=== PATIENT | female | born 1985 | race African-American/Black ===

== ENCOUNTER 2018-03-01 10:50 | Emergency (ER) | payer SELFPAY ==
[2018-03-01] MEDS ORDERED: Ondansetron ODT 4 MG TAB ONE ×2 (10:53→14:09)
[2018-03-01 13:00] LABS: Bilirubin Negative (Negative); Blood, Urine Large (Negative); Clarity TURBID (Clear); Glucose, Urine (Dipstick) Negative (Negative); Leukocyte Small (Negative); Nitrite Negative (Negative); Protein, Urine (Dipstick) Trace mg/dL (Neg-Trace); Specific Gravity, Urine 1.026 (1.002-1.036); Urobilinogen 0.2 mg/dL (0.2-1.0)
[2018-03-01 13:02] LABS: #Eosinphils 0.1 thou/uL (0.0-0.7); #Lymphocytes 1.1 thou/uL (1.20-3.40); #Monocytes 0.6 thou/uL (0.11-0.59); #Neutrophils 7.5 thou/uL (1.40-6.50); %Basophils 0.1 % (0.0-1.0); %Eosinophils 0.8 % (0.0-10.0); %Lymphocytes 11.4 % (21.0-51.0); %Monocytes 6.3 % (0.0-10.0); %Neutrophils 81.4 % (42.0-75.0); Hemoglobin 11.3 g/dL (12.0-16.0); Mean Corpuscular HGB CONC 31.9 g/dL (32.0-36.0); Mean Corpuscular Hemoglobin 23.3 pg (27.0-31.0); Mean Corpuscular Volume 73.1 fL (78.0-98.0); Mean Platelet Volume 7.9 fL (7.4-10.4); Platelet Count 351 thou/uL (130-400); RBC Distribution Width 16.4 % (11.5-14.5); Red Blood Cell (RBC) Count 4.86 mill/uL (4.20-5.40); White Blood Cell (WBC) Count 9.2 thou/uL (4.8-10.8)
[2018-03-01 13:02] LABS: Bacteria/HPF 1+ HPF (None Seen); Hyaline Casts/LPF 0-3 HYALINE CAST LPF (0-3 Hyaline); Pathc Cast-AUWi Flag 0.14 (0-2.49); RBC/HPF 0-3 HPF (0-3)
[2018-03-01 13:07] LABS: Renal Epithelial None Seen HPF (0-3); Transitional Epithelial NONE SEEN HPF (0-3)
[2018-03-01 13:21] LABS: ALT (SGPT) 22 U/L (8-55); AST (SGOT) 15 U/L (5-34); Albumin 4.2 g/dL (3.5-5.0); Alkaline Phosphatase 65 U/L (40-150); Anion Gap 10 mmol/L (10-20); BHCG - Serum Negative (NEGATIVE); BUN (Urea Nitrogen) 7 mg/dL (7.0-18.7); Bilirubin, Total 0.3 mg/dL (0.2-1.2); Calc. Creatinine Clearance 0 mL/min (70-130); Calcium 8.7 mg/dL (7.8-10.44); Carbon Dioxide 22 mmol/L (22-29); Chloride 108 mmol/L (98-107); Estimated GFR-MDRD Greater than 90; Globulin 2.7 g/dL (2.4-3.5); Glucose 90 mg/dL (70-105); Lipase 17 U/L (8-78); Potassium 3.5 mmol/L (3.5-5.1); Pregs Control Background? CLEAR/WHITE (CLR/WHITE); Pregs Control Bar Appear? YES (CONTROL BAR); Protein, Total 6.9 g/dL (6.0-8.3); Sodium 136 mmol/L (136-145)
--- NOTE | 2018-03-01 14:04 | ULT ---
ULTRASOUND ABDOMEN LIMITED: (RIGHT UPPER QUADRANT) Date: 03/01/18 Time: 1332 hours HISTORY: 32-year-old female with right upper quadrant abdominal pain. FINDINGS: Gallbladder: There are gallstones. At least two are visualized abutting each other at the gallbladder fundus/body. One of them measures at least 23 mm in size. Gallbladder wall thickness is at the upper limits of normal. No pericholecystic fluid. Positive tenderness over the gallbladder. Common duct: 5 mm. Liver: Normal size and echogenicity. Pancreas: Nonspecific sonographic appearance. Right kidney: No hydronephrosis. IMPRESSION: Positive for cholelithiasis. AIDAN Thomas POS: ISMAEL
== END 2018-03-01 14:15 | disposition home or self-care (01) ==
LOC: ERS 10:50
DX: K80.20 Calculus of gallbladder without cholecystitis without obstruction (principal); N39.0 Urinary tract infection, site not specified; F17.210 Nicotine dependence, cigarettes, uncomplicated
CPT/HCPCS: 36415; 76705; 80053; 81003; 81015; 83690; 84703; 85025; 87086; Q0162

== ENCOUNTER 2018-04-11 05:18 | Observation (INO) | payer SELFPAY ==
[2018-04-11 06:02] LABS: Bilirubin Negative (Negative); Blood, Urine Negative (Negative); Clarity CLEAR (Clear); Glucose, Urine (Dipstick) Negative (Negative); Leukocyte Negative (Negative); Nitrite Negative (Negative); Pregnancy Test - Urine (BHCG) Negative (Negative); Pregu Control Background? CLEAR/WHITE (CLR/WHITE); Pregu Control Bar Appear? YES (CONTROL BAR); Protein, Urine (Dipstick) Negative (Neg-Trace); Specific Gravity 1.017 (1.002-1.036); Specific Gravity, Urine 1.017 (1.002-1.036); Urobilinogen 0.2 mg/dL (0.2-1.0); pH, Urine 6.5 (5.0-9.0)
[2018-04-11] MEDS ORDERED: Fentanyl 100 MCG/2 ML VIAL ONE ×4 (06:10→20:16)
[2018-04-11] MEDS ORDERED: Ondansetron HCl/PF 4 MG/2 ML Vial ONE ×3 (06:10→20:25)
[2018-04-11 06:31] LABS: #Eosinphils 0.1 thou/uL (0.0-0.7); #Monocytes 0.5 thou/uL (0.11-0.59); %Basophils 0.5 % (0.0-1.0); %Eosinophils 1.3 % (0.0-10.0); %Lymphocytes 26.4 % (21.0-51.0); %Monocytes 6.3 % (0.0-10.0); %Neutrophils 65.4 % (42.0-75.0); Hemoglobin 11.4 g/dL (12.0-16.0); Mean Corpuscular HGB CONC 30.5 g/dL (32.0-36.0); Mean Corpuscular Hemoglobin 21.9 pg (27.0-31.0); Mean Corpuscular Volume 71.9 fL (78.0-98.0); Mean Platelet Volume 8.9 fL (7.4-10.4); Platelet Count 425 thou/uL (130-400); RBC Distribution Width 16.8 % (11.5-14.5); Red Blood Cell (RBC) Count 5.18 mill/uL (4.20-5.40); White Blood Cell (WBC) Count 7.6 thou/uL (4.8-10.8)
[2018-04-11 06:49] LABS: ALT (SGPT) 16 U/L (8-55); AST (SGOT) 12 U/L (5-34); Albumin 4.3 g/dL (3.5-5.0); Alkaline Phosphatase 92 U/L (40-150); Anion Gap 11 mmol/L (10-20); BUN (Urea Nitrogen) 5 mg/dL (7.0-18.7); Bilirubin, Total 0.2 mg/dL (0.2-1.2); Calc. Creatinine Clearance 0 mL/min (70-130); Calcium 8.9 mg/dL (7.8-10.44); Carbon Dioxide 20 mmol/L (22-29); Chloride 108 mmol/L (98-107); Estimated GFR-MDRD Greater than 90; Globulin 3.4 g/dL (2.4-3.5); Glucose 97 mg/dL (70-105); Lipase 30 U/L (8-78); Potassium 3.9 mmol/L (3.5-5.1); Protein, Total 7.7 g/dL (6.0-8.3); Sodium 135 mmol/L (136-145)
[2018-04-11 06:53] LABS: CKMB 0.7 ng/mL (0-6.6); Troponin I Less than 0.010 ng/mL (< 0.028)
[2018-04-11] MEDS ORDERED: Morphine 4 MG/ML VIAL ONE ×2 (06:56→09:06)
[2018-04-11] MEDS ORDERED: cefOXitin 2 GM in Sodium Chloride 0.9% 100 ML IVPB SCH ×2 (07:15→16:00)
--- NOTE | 2018-04-11 09:06 | ULT ---
PRELIMINARY REPORT/[facility]/EMERGENTY AFTER-HOURS PROCEDURE US Abdomen Limited, Right Upper Quadrant CLINICAL HISTORY: 32 years old, female; Pain and signs and symptoms; Nausea and vomiting; Abdominal pain; Localized; Ri ght upper quadrant (ruq) TECHNIQUE: Real-time ultrasound of the right upper quadrant with image documentation. COMPARISON: No relevant prior studies available. FINDINGS: Liver: Diffusely echogenic liver consistent with hepatic steatosis or hepatocellular disease. No intr ahepatic bile duct dilation. Gallbladder: Multiple echogenic, shadowing calculi in the gallbladder measuring up to 2.[address] Non-mobile 1.8 cm calculus in the gallbladder neck. Mild gallbladder wall thickening measuring 4 mm. No pericholecystic fluid. Positive sonographic Posada sign. Common bile duct: Dilated common bile duct measuring 8 mm in diameter. No visible choledocholithiasis . Pancreas: No focal lesion in the visualized pancreas. No ductal dilation. Right kidney: Normal. No stones. No solid mass. No hydronephrosis. IMPRESSION: Cholelithiasis and findings consistent with acute cholecystitis. Thank you for allowing us to participate in the care of your patient. Dictated and Authenticated by: Papo Nguyen MD 04/11/2018 7:06 AM Central Time ([place] & [place]) FINAL REPORT EMERGENCY AFTER HOURS RIGHT UPPER QUADRANT ABDOMINAL ULTRASOUND: Date: 04/11/18 FINDINGS/IMPRESSION: I agree with the findings and impression given in the preliminary report per [facility] physician. There is cholelithiasis. There may be findings suggesting acute cholecystitis. Correlate with white blood yancy l count. POS: CET
[2018-04-11] MEDS ORDERED: Ketorolac Tromethamine 30 MG/ML VIAL IVP PRN (10:16)
[2018-04-11] MEDS ORDERED: Calcium Carbonate 500 MG ChewTAB PO PRN ×2 (10:16→21:05)
[2018-04-11] MEDS ORDERED: hydrALAZINE 20 MG/ML VIAL SLOW IVP PRN ×2 (10:16→21:05)
[2018-04-11] MEDS ORDERED: Mag-Al 1200 mg/1200 mg/30 ML UDCUP PO PRN ×2 (10:16→21:05)
[2018-04-11] MEDS ORDERED: Dextrose 50% Abboject 50 ML SYRINGE SLOW IVP PRN ×2 (10:16→21:05)
[2018-04-11] MEDS ORDERED: Promethazine HCl 25 MG/ML VIAL IM PRN ×3 (10:16→21:05)
[2018-04-11] MEDS ORDERED: Dextrose 5% in Water 1,000 ML IV PRN ×2 (10:16→21:05)
[2018-04-11] MEDS: Ondansetron HCl/PF 4 MG/2 ML Vial IVP PRN ×2 (10:40→16:23)
[2018-04-11] MEDS: Morphine 4 MG/ML VIAL SLOW IVP PRN ×2 (10:45→14:44)
[2018-04-11] MEDS: D5 1/2 NS w/20 mEq KCL 1,000 ML IV SCH ×3 (10:49→21:39)
[2018-04-11 11:14] VITALS: BMI 37.5
--- NOTE | 2018-04-11 15:04 | HP ---
DATE OF ADMISSION: 04/11/2018 CHIEF COMPLAINT: Cholecystitis. HISTORY OF PRESENT ILLNESS: This is a 32-year-old female, who has had multiple bouts of right upper quadrant pain that is described as sharp, intermittent, pain radiates to her right subscapular region , not associated with nausea or vomiting normally; however, she presented to the emergency room early this morning. After eating dinner, with some more severe intractable pain. It did get better with IV pain medicine, associated with nausea and vomiting. No previous known history of jaundice, gallst ones, or pancreatitis. PAST MEDICAL HISTORY: She denies. PAST SURGICAL HISTORY: Includes , bilateral inguinal hernia. MEDICINES: None. ALLERGIES: No known drug allergies. SOCIAL HISTORY: No smoking, alcohol, or drugs. REVIEW OF SYSTEMS: Ten-system review of systems, otherwise, negative unless described above. FAMILY HISTORY: Noncontributory to GI malignancy or anesthetic-related complication. PHYSICAL EXAMINATION: VITAL SIGNS: Blood pressure 111/72, pulse 61, respirations 16, temperature 98.0. HEENT: Sclerae are anicteric. Oropharynx clear. NECK: No lymphadenopathy. CHEST: Clear. HEART: Regular rate and rhythm. ABDOMEN: Soft, tender right upper quadrant, localized guarding, no rebound, no abdominal hernias. EXTREMITIES: No ischemia or edema to extremities. LABORATORY DATA: White blood cell count is 7, hemoglobin 11. Sodium 135, potassium 3.9. LFTs tomas l. Lipase normal. Ultrasound shows gallstones and acute cholecystitis. Bile duct is 8 mm and dilat ed. ASSESSMENT: Acute cholecystitis with dilated common bile duct on ultrasound. PLAN: Laparoscopic cholecystectomy with intraoperative cholangiogram. Risks, benefits, alternatives discussed. She gives consent. We will do this today.
[2018-04-11] MEDS ORDERED: PROPOFOL 200 MG/20 ML VIAL ONE (15:37)
[2018-04-11] MEDS ORDERED: Dexamethasone 20 MG/5 ML VIAL ONE (15:37)
[2018-04-11] MEDS ORDERED: Lidocaine 1% PF 5 ML VIAL ONE (15:37)
[2018-04-11] MEDS ORDERED: PHENYLEPHRINE-NS 100 MCG/ML 10 ML SYRINGE ONE (15:37)
[2018-04-11] MEDS ORDERED: Glycopyrrolate 0.2 MG/ML 5 ML SYRINGE ONE (15:37)
--- NOTE | 2018-04-11 17:11 | EKG ---
Test Reason : ABD PAIN Blood Pressure : / mmHG Vent. Rate : 063 BPM Atrial Rate : 063 BPM P-R Int : 146 ms QRS Dur : 076 ms QT Int : 416 ms P-R-T Axes : 019 020 022 degrees QTc Int : 425 ms Normal sinus rhythm Normal ECG Confirmed by KATINA BETANCUR, DR. Guo ([id number]) on 04/11/2018 5:11:08 PM Referred By: Confirmed By:DR. Brant AMBRIZ MD
[2018-04-11] MEDS ORDERED: Bupivacaine/Epinephrine 0.25% 30 ML VIAL ONE (18:09)
[2018-04-11] MEDS ORDERED: Iothalamate Meglumine 60% 50 ML VIAL FS ONE (18:09)
[2018-04-11] MEDS ORDERED: Ondansetron HCl/PF 4 MG/2 ML Vial IVP PRN ×2 (20:01→21:05)
[2018-04-11] MEDS ORDERED: Promethazine HCl 25 MG/ML VIAL SLOW IVP PRN (20:01)
[2018-04-11] MEDS ORDERED: HYDROmorphone 2 MG/ML VIAL SLOW IVP PRN (20:01)
[2018-04-11] MEDS ORDERED: Meperidine HCl/PF 25 MG/ML VIAL SLOW IVP PRN (20:01)
[2018-04-11] MEDS ORDERED: Meperidine HCl/PF 25 MG/ML VIAL ONE (20:03)
[2018-04-11] MEDS ORDERED: D5 1/2 NS w/20 mEq KCL 1,000 ML ONE (20:29)
[2018-04-11] MEDS ORDERED: Famotidine/PF 20 mg/2ml Vial SLOW IVP SCH (21:00)
[2018-04-11] MEDS ORDERED: Morphine 2 MG/ML SYRINGE SLOW IVP PRN (21:05)
[2018-04-11] MEDS ORDERED: HYDROcodone/Acetaminophen 10/325 mg Tablet PO PRN (21:05)
[2018-04-11] MEDS: Famotidine 20 MG TAB PO SCH (21:38)
[2018-04-11] MEDS: Famotidine/PF 20 mg/2ml Vial SLOW IVP SCH (21:39)
--- NOTE | 2018-04-11 21:50 | OP ---
DATE OF PROCEDURE: 04/11/2018 PREOPERATIVE DIAGNOSIS: Acute cholecystitis with dilated common bile duct. POSTOPERATIVE DIAGNOSIS: Acute cholecystitis with dilated common bile duct. PROCEDURE: Laparoscopic cholecystectomy with intraoperative cholangiogram. SURGEON: Dr. Walter. ANESTHESIA: General. ESTIMATED BLOOD LOSS: Minimal. COMPLICATIONS: None. SPECIMEN: Gallbladder. FINDINGS: Normal cholangiogram. PROCEDURE IN DETAIL: The patient was taken to the operating room and placed supine on the table. Af ter general anesthetic was obtained, the abdomen was prepped and draped in a sterile fashion. Curved incision made below the umbilicus. Cautery was used to dissect down to and score the fascia. Abdom inal cavity entered bluntly using a Juhi clamp. Holding stitch of PDS placed on each side of the fa scia. Bonita trocar was placed after pneumoperitoneum was obtained. An upper midline 5-mm port and 2 right upper quadrant 5-mm ports were placed under direct camera visualization. The gallbladder was extracted from the gallbladder fossa. The peritoneum was opened anteriorly and posteriorly. Critica l view triangle was seen showing only the cystic duct and cystic artery branching from medial to late ral and no other branching structures. A small ductotomy was made and a cholangiocatheter was glenroy t in through a separate stab incision, placed in the cystic duct and cholangiogram was performed whic h shows good contrast flow into the duodenum without obstruction. Cholangiocatheter was removed and 2 clips were placed proximal on the cystic duct and it was cut using laparoscopic scissors. Cystic a rtery was taken using two clips proximal, one clip distal and cut using laparoscopic scissors. Cauter y was used to dissect the gallbladder out of the gallbladder fossa. There was significant acute chol ecystitis, so there was local inflammatory change in the gallbladder bed. Gallbladder was placed in an Endo catch bag and brought out through the Bonita. Radha antibleeding starch was placed in the g allbladder fossa. All port sites were infiltrated using local anesthetic. All ports were removed un adi camera visualization and pneumoperitoneum was let down. PDS was used to close the fascial defect above the umbilicus. All incisions were irrigated and closed using 4-0 Monocryl and Dermabond. The patient was en route to Recovery in stable condition. All instrument counts, needle counts and lap c ounts were correct.
[2018-04-11] MEDS: cefOXitin 2 GM in Sodium Chloride 0.9% 100 ML IVPB SCH (22:27)
[2018-04-11] MEDS: HYDROcodone/Acetaminophen 10/325 mg Tablet PO PRN (22:34)
[2018-04-12] MEDS: Morphine 4 MG/ML VIAL SLOW IVP PRN ×2 (03:46→08:06)
[2018-04-12] MEDS: D5 1/2 NS w/20 mEq KCL 1,000 ML IV SCH ×2 (05:00→08:05)
[2018-04-12] MEDS: cefOXitin 2 GM in Sodium Chloride 0.9% 100 ML IVPB SCH (05:04)
[2018-04-12] MEDS: Famotidine 20 MG TAB PO SCH (07:56)
[2018-04-12] MEDS: Famotidine/PF 20 mg/2ml Vial SLOW IVP SCH (07:56)
--- NOTE | 2018-04-12 08:30 | RAD ---
OPERATIVE CHOLANGIOGRAM: FINDINGS: A series of 3 films are presented for interpretation. There is a suggestion that there is a filling defect within the common duct just beyond the branching of the right and left branches of the duct. This may just represent air bubbles. It appears as a filling defect on one of the images. The other image of this area is obscured by some motion. IMPRESSION: Suggestion of a filling defect within the common duct which could represent a ductal calculus versus air bubble. This is not well visualized due to motion on some of these images. POS: ISMAEL
[2018-04-12 11:07] VITALS: BP 138/83; TEMP 98.1
[2018-04-12] MEDS: HYDROcodone/Acetaminophen 10/325 mg Tablet PO PRN (11:34)
--- NOTE | 2018-04-12 14:09 | DIS ---
DATE OF ADMISSION: 04/11/2018 DATE OF DISCHARGE: 04/12/2018 ADMITTING DIAGNOSIS: Acute cholecystitis. DISCHARGE DIAGNOSIS: Acute cholecystitis. PROCEDURE: Laparoscopic cholecystectomy with cholangiogram by Dr. Walter without complication. CONDITION AT DISCHARGE: Improved. STAFF: Dr. Walter. HOSPITAL COURSE: On postop day #1, the patient is doing well, ambulatory, tolerating regular food, m ild nausea and mild bloating. She is discharged home. Prescriptions given for [place] as well as Zofr an. She will follow up with me in the office in 2 weeks.
== END 2018-04-12 11:40 | disposition home or self-care (01) ==
LOC: ERS 05:18 → T4-A 09:47
PROVIDERS: ADMIT Surgery; ATTEND Surgery
PROC: 0FT44ZZ Resection of Gallbladder, Percutaneous Endoscopic Approach (ICD-10-PCS; principal; 2018-04-11)
PROC: BF101ZZ Fluoroscopy of Bile Ducts using Low Osmolar Contrast (ICD-10-PCS; 2018-04-12)
DX: K80.12 Calculus of gallbladder with acute and chronic cholecystitis without obstruction (principal)
CPT/HCPCS: 36415; 47532; 76705; 80053; 81003; 81025; 82553; 83690; 84484; 85025; 88304; 93005; 96361; 96365; 96366; 96372; 96374; 96375; 96376; G0378; J0131; J0694; J1100; J1885; J2001; J2175; J2270; J2405; J2550; J2704; J3010; J7050; Q9961; S0028

== ENCOUNTER 2018-08-06 08:33 | Emergency (ER) | payer SELFPAY ==
--- NOTE | 2018-08-06 09:43 | RAD ---
NASAL BONE THREE VIEWS: History: Injury, nasal bone pain and swelling. FINDINGS/IMPRESSION: There are mildly displaced fractures involving the nasal bones on either side. POS: ROBBIEH
== END 2018-08-06 09:28 | disposition home or self-care (01) ==
LOC: ERS 08:33
DX: S02.2XXA Fracture of nasal bones, initial encounter for closed fracture (principal); F17.210 Nicotine dependence, cigarettes, uncomplicated; Y04.2XXA Assault by strike against or bumped into by another person, initial encounter
CPT/HCPCS: 70160